=== PATIENT | female | born 1955 | race Caucasian/White ===

== ENCOUNTER 2019-03-12 09:00 | Outpatient (RCR) ==
--- NOTE | 2019-03-10 16:00 | RS.OPPTEV2 ---
Date of Note: 03/10/19 Visit #: 1 Number of visits approved by Insurance: n/a Date of Evaluation: 03/10/19 Payer Source: Insurance ([employer]) Date of Onset/Injury/Change in Status: 10/31/18 Surgery Performed?: Yes (ORIF R ankle 10/2018) Treatment Diagnosis: closed bimalleolar fx of R ankle s/p ORIF History of Condition/Mechanism of Injury:: pt slipped and fell on the ice in 2018 suffering fx to R ankle and underwent ORIF R ankle. 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 pt has been off work since her injury. pt is anxious to return to work, concerned about passing her physical. Functional Limitations: Carrying, Standing, Squatting, Ambulation, Community Access/Integration Current Subjective/complaints:: pt states she has been working on some ex at home that she found on the internet. States she feels she needs some PT to improve strength and endurance so she can pass her return to work physical. pt reports that she continues to have swelling in her R ankle if she tries to carry something heavy or work on her feet for a long period of time. Treatment Side (optional): Right *Precautions: n/a Medical History Medical History: Arthritis Surgical History Comments:: ORIF R ankle Smoking Status: Former smoker Hx Home Medications: none Patient's Goals: return to work Pain Assessment - Pain Description Pain Location: R ankle Pain Description: Aching Current Pain Intensity: 0 Other Comments regarding Pain:: only hurts if up on it for long period of time. Functional Outcome Measure LE Functional Scale: 74 - G Codes & Severity Modifier G Codes & Modifier: n/a Source of G Code score: n/a Observation - Observation Posture: Forward Head Handedness: Right Girth Measurement Lower: RLE: ankle 28.2cm, forefoot 21 cm, 10 cm above 27.1 cm. LLE: ankle 24.1cm, forefoot 21.2 cm, 10 cm above 27cm Gait - Gait Pattern General Gait Pattern Observation: Antalgic Gait Gait Comments: pt amb with decreased heel strike/toe off, amb with R foot in rolling into supination with R LE slight ext rotation. General Range of Motion: BUE WFL's. LLE WFL's. RLE hip and knee WFL's Muscle Strength: BUE 5/5. LLE 5/5. RLE hip flex 4+/5, knee flex/ext 4+/5, Ankle ROM: Left WFL's Ankle Muscle Strength: Left WFL's - Right Ankle ROM Right DF with Knee extension: neutral Right Plantarflexion: 28 Right Eversion: 18 Right Inversion: 22 Right Ankle/Foot ROM Limitations: Soft Tissue Tightness, Muscle Weakness, Pain - Right Ankle Strength Right Dorsiflexion: 4- Good- Right Plantarflexion: 4- Good- Right Eversion: 4- Good- Right Inversion: 4- Good- Palpation Palpation Findings: Tenderness Comments:: tenderness noted Lat side of ankle Sensation - Sensation Right Upper Extremity: Intact/Normal Left Upper Extremity: Intact/Normal Right Lower Extremity: Intact/Normal Left Lower Extremity: Intact/Normal Balance - Sitting Balance Static Sitting Balance: Normal Dynamic Sitting Balance: Normal - Standing Balance Static Standing Balance: Normal Dynamic Standing Balance: Good Interventions - Exercise/Activities/Manual Therapy Exercises/Activities: pt performed DF, PF, inversion, eversion with green theraband, towel stretch, and received hamstring stretch. Manual Therapy: n/a HOME EXERCISE PROGRAM: pt given written HEP including DF, PF, inversion, eversion with green theraband, as well as hamstring stretch, and towel stretch for heel cords. - Charges Timed Code Treatment Minutes: 50 Total Treatment Time: 57 Procedures billed for this date of service:: eval low, ex EVALUATION COMPLEXITY LEVEL EVALUATION COMPLEXITY LEVEL: HISTORY: Low, EXAM OF BODY SYSTEMS: Low, CLINICAL PRESENTATION: Low, CLINICAL DECISION MAKING: Low Assessment Assessment: pt presents with decreased strength R ankle, decreased ROM, decreased endurance, edema RLE. Feel pt would benefit from skilled PT to improve strength, endurance to allow pt to return to work. Patient Education: Home Exercise Program, Education of Plan of Care Rehab Potential: Good Short Term Goals Goal #1: pt independent with initial HEP Goal to be met by: 03/19/19 Goal #2: pt with decreased edema R ankle equal to L ankle Goal to be met by: 03/19/19 Goal #3: Improve ROM R ankle DF 5 PF, 30 Goal to be met by: 03/19/19 Goal #4: pt able to amb in dept with improved sequencing no LOB Goal to be met by: 03/19/19 [facility] Goals Goal #1: pt able to ascend/descend 10inch step x 10 reps Goal to be met by: 03/26/19 Goal #2: pt demonstrate ability to lift 40lb box for work purposes. Goal to be met by: 03/26/19 Goal #3: pt amb carrying 30lb box 25ft x 2 without increased R ankle pain Goal to be met by: 03/26/19 Goal #4: pt report no increase in pain while working around her home. Goal to be met by: 03/26/19 Plan - Treatment to be Provided Procedures: Therapeutic Exercises, Therapeutic Activity, Manual Therapy, Massage , Patient Education Modalities: Electrical Stimulation, Cryotherapy, Hot Packs - Treatment Plan Frequency: 3 X week Duration: 3 weeks Dates of [facility] Goals: 03/26/19 Expiration date of current Insurance Approval:: n/a - Treatment Code (1) Right ankle pain Code(s): M25.571 - PAIN IN RIGHT ANKLE AND JOINTS OF RIGHT FOOT Qualifiers: Chronicity: chronic Qualified Code(s): M25.571 - Pain in right ankle and joints of right foot; G89.29 - Other chronic pain (2) Joint stiffness of right ankle and/or foot Code(s): [id number] - (3) Effusion of ankle joint, right Code(s): M25.471 - EFFUSION, RIGHT ANKLE (4) Muscle weakness Code(s): M62.81 - MUSCLE WEAKNESS (GENERALIZED)
--- NOTE | 2019-03-11 10:02 | RS.OPPTDN ---
Subjective Date of Note: 03/11/19 Visit #: 2 Number of visits approved by Insurance: na Date of Evaluation: 03/10/19 Payer Source: Insurance ([employer]) Treatment Diagnosis: closed bimalleolar fx of R ankle s/p ORIF Current Subjective/complaints:: Patient reports the pain elevates ,dependent upon how long she is on her feet. *Precautions: n/a Pain Assessment - Pain Description Pain Location: R ankle Pain Description: Dull, Throbbing, Aching, Chronic Current Pain Intensity: 2/10 - Treatment Modality: Electrical Stim Unattended Parameters/Method Applied: 20 mins. high volt to R ankle @ 220 pv,2 small electrodes ,one laterally ,one medially. Patient Position: Supine - Heat/Cryotherapy Treatment: Cryotherapy (concurrent with e-stim) Interventions - Exercise/Activities/Manual Therapy Exercises/Activities: 35 mins. performed DF, PF, inversion, eversion with green theraband, standing calf raises,mini-squats with therapy ball behind the back.3/ 15 each exercise today.Patient education for pain control,ice vs. heat. Total minutes of Exercise: 35 Manual Therapy: n/a Total minutes of Manual Therapy: 0 HOME EXERCISE PROGRAM: pt given written HEP including DF, PF, inversion, eversion with green theraband, as well as hamstring stretch, and towel stretch for heel cords. - Charges Timed Code Treatment Minutes: 35 Total Treatment Time: 55 Procedures billed for this date of service:: cp,e-stim,ex 2 Assessment: Patient very attentive and motivated to improve.She has good return demo of [facility] exercise today.She does have slight elevation in R ankle pain with calf raises,but lessens as the reps. progress. Patient Education: Education of diagnosis, Body/Joint mechanics, Home Exercise Program, Home Safety, Activity Modification, Education of Plan of Care Patient demonstrates compliance with HEP?: Yes Short Term Goals Goal #1: pt independent with initial HEP Goal to be met by: 03/19/19 Progress towards Goal:: Progressing Goal #2: pt with decreased edema R ankle equal to L ankle Goal to be met by: 03/19/19 Goal #3: Improve ROM R ankle DF 5 PF, 30 Goal to be met by: 03/19/19 Progress towards Goal:: Progressing Goal #4: pt able to amb in dept with improved sequencing no LOB Goal to be met by: 03/19/19 [facility] Goals Goal #1: pt able to ascend/descend 10inch step x 10 reps Goal to be met by: 03/26/19 Goal #2: pt demonstrate ability to lift 40lb box for work purposes. Goal to be met by: 03/26/19 Goal #3: pt amb carrying 30lb box 25ft x 2 without increased R ankle pain Goal to be met by: 03/26/19 Goal #4: pt report no increase in pain while working around her home. Goal to be met by: 03/26/19 Plan Dates of [facility] Goals: 03/26/19 Expiration date of current Insurance Approval:: na PLAN: Cont. skilled PT to maximize strength and motion in the R ankle ,without pain for ADL's.
--- NOTE | 2019-03-12 10:01 | RS.OPPTDN ---
Subjective Date of Note: 03/12/19 Visit #: 3 Number of visits approved by Insurance: na Date of Evaluation: 03/10/19 Payer Source: Insurance ([employer]) Treatment Diagnosis: closed bimalleolar fx of R ankle s/p ORIF Current Subjective/complaints:: Patient reports the ankle feels better today, was able to do yardwork yesterday with less difficulty. *Precautions: n/a Pain Assessment - Pain Description Pain Location: R ankle Pain Description: Dull Pain Description: uncomfortable Current Pain Intensity: not rated - Treatment Modality: Electrical Stim Unattended Parameters/Method Applied: 10 mins. ,2 electrodes to R ankle (lateral and medial ),@ 190 pv. Patient Position: Supine - Heat/Cryotherapy Treatment: Cryotherapy (concurrent with e-stim) Interventions - Exercise/Activities/Manual Therapy Exercises/Activities: 35 mins. performed DF to 5degrees , PF to 24 degrees today.Progressed to bilateral leg press,1/15 each @ 60,75,90 # .Bilateral calf raises @ 30 # ,3/10. Total minutes of Exercise: 35 Manual Therapy: n/a Total minutes of Manual Therapy: 0 HOME EXERCISE PROGRAM: pt given written HEP including DF, PF, inversion, eversion with green theraband, as well as hamstring stretch, and towel stretch for heel cords. - Charges Timed Code Treatment Minutes: 35 Total Treatment Time: 55 Procedures billed for this date of service:: cp,e-stim ex 2 Assessment: Patient progressing well,has increased motion and strength in L ankle ,with less ankle pain .She is very motivated and compliant to improve. Patient Education: Education of diagnosis, Body/Joint mechanics, Home Exercise Program, Home Safety, Activity Modification, Education of Plan of Care Patient demonstrates compliance with HEP?: Yes Short Term Goals Goal #1: pt independent with initial HEP Goal to be met by: 03/19/19 Progress towards Goal:: Progressing Goal #2: pt with decreased edema R ankle equal to L ankle Goal to be met by: 03/19/19 Progress towards Goal:: Progressing Goal #3: Improve ROM R ankle DF 5 PF, 30 Goal to be met by: 03/19/19 Progress towards Goal:: Progressing Goal #4: pt able to amb in dept with improved sequencing no LOB Goal to be met by: 03/19/19 Progress towards Goal:: Progressing [facility] Goals Goal #1: pt able to ascend/descend 10inch step x 10 reps Goal to be met by: 03/26/19 Goal #2: pt demonstrate ability to lift 40lb box for work purposes. Goal to be met by: 03/26/19 Goal #3: pt amb carrying 30lb box 25ft x 2 without increased R ankle pain Goal to be met by: 03/26/19 Goal #4: pt report no increase in pain while working around her home. Goal to be met by: 03/26/19 Plan Dates of [employer] Goals: 03/26/19 Expiration date of current Insurance Approval:: na PLAN: Cont. skilled PT to maximize the motion and strength in the R ankle,able to safely walk on all surfaces.
== END 2019-03-12 23:59 | disposition short-term general hospital (02) ==
PROVIDERS: ATTEND Orthopaedic Surgery
DX: S82.841D Displaced bimalleolar fracture of right lower leg, subsequent encounter for closed fracture with routine healing (principal)